=== PATIENT | female | born 1960 | race Caucasian/White ===

== ENCOUNTER 2017-01-23 16:50 | Emergency (ER) | payer OTHER ==
[2017-01-23 17:07] VITALS: BP 128/85; PULSE 95; RESP 18; TEMP 98.1; O2SAT 96
--- NOTE | 2017-01-23 17:52 | EDPHY ---
H & P Time Seen by Provider: 01/23/17 17:16 HPI/ROS: This patient recently moved here from [place] with a history of major depression, anxiety and PTSD. She is currently in the process of intake to [facility], but they require once a week classes for 3 weeks prior to being able see a practitioner and she is only the 1st week of this and she is now out of her clonazepam and nearly out of all of her other psychiatric medications requesting refills. After removing from [place] she had 1 month worst of scripts filled by a physician at the crisis Center where she presented requesting medications. The patient reports no current escalation of her baseline depression simply requests refills to get her through until she is able to secure an appointment to see a practitioner in 2-4 weeks. ROS: No fevers or other somatic symptoms. HEENT: No headaches Psychiatric: No insomnia 5 point ROS is otherwise negative. Past Medical/Surgical History: Major depression, anxiety and PTSD Social History: She admits to smoking marijuana at night to help her sleep. No other drug use. No alcohol use Smoking Status: Heavy smoker Physical Exam: General Appearance: Alert, no distress. Eyes: Pupils equal and round no pallor or injection. Pupils are 4 mm equal and reactive ENT, Mouth: Mucous membranes moist. Respiratory: There are no retractions, lungs are clear to auscultation. Cardiovascular: Regular rate and rhythm. Gastrointestinal: Abdomen is soft and nontender, no masses, bowel sounds normal. Neurological: GCS 15 with no focal deficits Skin: Warm and dry, no rashes. Musculoskeletal: Neck is supple nontender. Extremities are symmetrical, full range of motion. Psychiatric: Mood and affect are currently normal. She has no pressured speech. She maintains logical thought content. She denies any suicidal ideation or homicidal ideation. She is having no hallucinations. No psychotic symptoms. Constitutional: Initial Vital Signs Temperature (C) 36.7 C 01/23/17 17:05 Heart Rate 95 01/23/17 17:05 Respiratory Rate 18 01/23/17 17:05 Blood Pressure 128/85 H 01/23/17 17:05 O2 Sat (%) 96 01/23/17 17:05 O2 Delivery Mode Room Air Allergies/Adverse Reactions: No Known Allergies Allergy (Unverified 01/23/17 17:12) Home Medications: Medication Instructions Recorded Citalopram 40 mg PO DAILY 01/23/17 Citalopram Hydrobromide 40 mg PO DAILY #30 tablet 01/23/17 [Citalopram HBr] Clonazepam 1 mg PO BID 01/23/17 GABAPENTIN 1,200 mg PO HS 01/23/17 Gabapentin 1,200 mg PO HS #60 tablet 01/23/17 Hydroxyzine HCl 100 mg PO HS 01/23/17 Imipramine HCl 150 mg PO HS 01/23/17 clonazePAM [klonoPIN (*)] 1 mg PO BID PRN #60 tab 01/23/17 hydrOXYzine HCL 100 mg PO HS #60 tab 01/23/17 MDM/Departure - [facility] ED Course/Re-evaluation: This patient strikes me as being honest about her medical situation and I explained we would normally do not prescribe more than a very short course of medications but since he is actively seeking psychiatric follow-up with difficult access, I will provide scripts for her with exception of her tricyclic antidepressant that she takes at night for sleep. I Explained that I' m not comfortable filling that script. She does not have evidence of active crisis symptoms or escalation of her baseline psychiatric conditions - Depart Disposition: Home, Routine, Self-Care Clinical Impression: Encounter for medication refill Condition: Good Additional Instructions: Diagnosis: Medication refill Plan: Follow up SARANYA with your psychiatrist Prescriptions: Citalopram Hydrobromide [Citalopram HBr] 40 mg PO DAILY #30 tablet clonazePAM [klonoPIN (*)] 1 mg PO BID PRN #60 tab PRN Reason: Anxiety Gabapentin 1,200 mg PO HS #60 tablet hydrOXYzine HCL 100 mg PO HS #60 tab Referrals: NONE *PRIMARY CARE P,. [Primary Care Provider] - As per Instructions
== END 2017-01-23 18:13 | disposition home or self-care (01) ==
LOC: CED 16:50
DX: Z76.0 Encounter for issue of repeat prescription (principal); F17.200 Nicotine dependence, unspecified, uncomplicated

== ENCOUNTER 2017-02-03 13:45 | Emergency (ER) | payer OTHER ==
[2017-02-03] MEDS ORDERED: LET GEL TOPICAL 1 EA SYR TP ONE (13:53)
[2017-02-03 13:54] VITALS: RESP 18; TEMP 98.1
--- NOTE | 2017-02-03 14:00 | EDPHY ---
H & P Time Seen by Provider: 02/03/17 13:56 HPI/ROS: This patient was cleaning her she had a wearing flip-flops and bumped her foot up against a sharp object that she thinks is broken glass causing a laceration shortly prior to arrival. She does not feel sense of foreign body at the area complains of moderate to severe pain from the laceration to the medial aspect of her right forefoot. She has accompanied by her who brought her here by private vehicle for evaluation. ROS: No numbness tingling or other neuro symptoms. Musculoskeletal: No bony pain No other injuries 5 point ROS is otherwise negative Past Medical/Surgical History: Tetanus immunization up-to-date Smoking Status: Heavy smoker Physical Exam: Physical Exam Vital signs are normal. General: No acute distress Lungs: No respiratory distress. Cardiac: Brisk capillary refill is intact throughout. Pulses are 2+ and symmetric in the affected extremity. Skin: No rash or pallor. Extremities: Atraumatic normal except for right foot Right foot: Patient has a 2 cm full-thickness laceration medial aspect of the right foot with no active bleeding-no foreign bodies and direct examination. Subcutaneous tissues evident but no deeper structures are injured. Neuro: Alert and oriented x3 with no sensorimotor deficits. Constitutional: Initial Vital Signs Temperature (C) 36.7 C 02/03/17 13:47 Heart Rate 99 02/03/17 13:47 Respiratory Rate 18 02/03/17 13:47 Blood Pressure 117/80 02/03/17 13:47 O2 Sat (%) 95 02/03/17 13:47 O2 Delivery Mode Room Air Allergies/Adverse Reactions: No Known Allergies Allergy (Verified 02/03/17 13:54) Home Medications: Medication Instructions Recorded GABAPENTIN 01/23/17 Celexa 02/03/17 Melatonin 02/03/17 clonazePAM [klonoPIN (*)] 02/03/17 hydrOXYzine HCL 02/03/17 traMADol [Ultram 50 mg (*)] 50 - 100 mg PO Q4 PRN #12 tab 02/03/17 MDM/Departure - MDM Procedures: The wound is 2 cm full-thickness, subcutaneous tissue evident, mild bleeding no foreign bodies. The wound was copiously irrigated with saline. The wound was explored for foreign bodies and none were found. The wound was prepped and draped in the normal sterile fashion. The wound was anesthetized using 1% plain lidocaine, 27 gauge needle-3 mL with good effect. The edges were reapproximated using 4 0 Prolene on a PC 3 needle- 6 sutures with good hemostasis and cosmesis. The patient tolerated the procedure well. There were no complications. Medications Given: Discontinued Medications Tetracaine/Epinephrine/Lidocaine (Let Gel Topical) 1 ea TP EDNOW ONE Stop: 02/03/17 13:54 Last Admin: 02/03/17 13:57 Dose: 1 ea - Depart Disposition: Home, Routine, Self-Care Clinical Impression: Foot laceration Qualifiers: Encounter type: initial encounter Laterality: right Qualified Code(s): S91.311A - Laceration without foreign body, right foot, initial encounter Condition: Good Instructions: Care For Your Stitches (ED) Additional Instructions: Diagnosis: Foot laceration Plan: Keep the wound clean and dry for the next 2 days then clean daily with warm soapy water Ibuprofen and Tylenol for pain as needed Return for redness, discharge or other concerns otherwise return in 10-12 days for suture removal Prescriptions: traMADol [Ultram 50 mg (*)] 50 - 100 mg PO Q4 PRN #12 tab PRN Reason: breakthrough pain Referrals: Todd Ramírez MD [Primary Care Provider] - As per Instructions
[2017-02-03 15:08] VITALS: BP 106/72; PULSE 94; O2SAT 96
== END 2017-02-03 15:07 | disposition home or self-care (01) ==
LOC: CED 13:45
PROC: 0HQMXZZ Repair Right Foot Skin, External Approach (ICD-10-PCS; principal; 2017-02-03)
DX: S91.311A Laceration without foreign body, right foot, initial encounter (principal); F17.200 Nicotine dependence, unspecified, uncomplicated; W25.XXXA Contact with sharp glass, initial encounter

== ENCOUNTER 2017-12-05 12:19 | Emergency (ER) | payer OTHER ==
[2017-12-05] MEDS ORDERED: ONDANSETRON 4 MG/2 ML VIAL IVP ONE (12:54)
[2017-12-05] MEDS ORDERED: HYOSCYAMINE SULFATE 0.125 MG TAB PO ONE (12:54)
[2017-12-05] MEDS ORDERED: FAMOTIDINE 20 MG in NS 100 ML IV ONE (12:54)
[2017-12-05] MEDS ORDERED: NS 1,000 ML IV ONE ×2 (12:54)
[2017-12-05] MEDS ORDERED: MAG HYDROX/AL HYDROX/SIMETH 30 ML UDCUP PO ONE (12:54)
[2017-12-05] MEDS ORDERED: LIDOCAINE 2% VISCOUS 15 ML UDCUP PO ONE (12:54)
--- NOTE | 2017-12-05 13:01 | EDPHY ---
H & P Time Seen by Provider: 12/05/17 12:33 HPI/ROS: HPI Vomiting and diarrhea. 57-year-old female by private vehicle. This patient reports that for the last 4 days she has had nausea with nonbilious and nonbloody vomiting, 2-3 episodes a day, watery diarrhea, multiple episodes per day, and now fatigue. She feels like she is getting dehydrated. Today she has not been able to keep oral fluids down. She reports that she vomited once prior to coming to the emergency department. She reports that since that time she has been drinking a small amount of Gatorade. She denies any significant abdominal pain. No foreign travel. No ill contacts. No change in diet. No camping. ROS: Constitutional: No fever, no chills. No weakness. Eyes: No discharge. No changes in vision. ENT: No sore throat. No nasal congestion or rhinorrhea. Respiratory: No cough. No shortness of breath. Cardiac: No chest pain, no palpitations. Gastrointestinal: As above. Genitourinary: No hematuria. No dysuria or increased frequency with urination. Musculoskeletal: No back pain. No neck pain. No myalgias or arthralgias. Skin: No rashes. Neurological: No headache. No focal weakness or altered sensation. Past medical history: Anxiety, depression, PTSD, cholecystectomy. Social history: Smokes cigarettes and marijuana. No IV drugs or street drugs. Currently here by herself. Denies alcohol. Physical Exam: General Appearance: Alert, she appears relaxed. This patient is responding to questions appropriately and in full sentences. This patient appears well- hydrated and well-nourished. Eyes: Pupils equal and round no pallor or injection. No lid edema, erythema or injection. Respiratory: There are no retractions, lungs are clear to auscultation with good air movement bilaterally. Cardiovascular: Regular rate and rhythm. No murmur. Gastrointestinal: Abdomen is soft and nontender, no masses, bowel sounds normal. No focal tenderness at McBurney's point. No Stone sign. Neurological: Motor sensory function is grossly intact. Cranial nerves are normal. Gait is normal. Skin: Warm and dry, no rashes. Musculoskeletal: Neck is supple and nontender. Extremities are symmetrical. All joints range without pain or impingement. Psychiatric: No agitation. No depression. Database: EKG: Imaging: Procedures: Emergency department course: Triage vital signs reviewed. She is mildly tachycardic. Vital signs are otherwise normal. An IV was placed. She was started on IV normal saline with 1 -2 L to be given over the next 1-2 hours. She will initially be given 4 mg of IV Zofran, 20 mg of IV Pepcid and a GI cocktail. Electrolytes will be evaluated. 3:00 p.m., the patient has had 2 L of IV normal saline. I discussed the results of her blood work with her. I explained I am concerned about her kidney function. She is feeling better at this time. She is able to tolerate Gatorade orally. Repeat abdominal exam she is soft, nontender nondistended. She has not vomited in the emergency department. She has not had any diarrhea in the emergency department. She feels comfortable going home and I feel she is safe for discharge. I will prescribe her Zofran for nausea. Follow-up through her primary care physician was discussed with her in detail. Return to emergency department precautions thoroughly reviewed. All of her questions were answered. She was discharged in good condition. Differential Diagnosis: The differential diagnosis on this patient includes but is not limited to viral gastroenteritis, food-borne illness. Appendicitis, cholecystitis, other surgical etiology, entero hemorrhagic E coli infection unlikely. This represents a partial list of diagnoses considered. These considerations are based on history, physical exam, past history, reassessment and diagnostic testing. Smoking Status: Heavy smoker Constitutional: Initial Vital Signs Temperature (C) 36.9 C 12/05/17 12:29 Heart Rate 110 H 12/05/17 12:29 Respiratory Rate 16 12/05/17 12:29 Blood Pressure 146/83 H 12/05/17 12:29 O2 Sat (%) 97 12/05/17 12:29 O2 Delivery Mode Room Air Allergies/Adverse Reactions: No Known Allergies Allergy (Verified 12/05/17 12:37) Home Medications: Medication Instructions Recorded GABAPENTIN 01/23/17 clonazePAM [klonoPIN (*)] 02/03/17 hydrOXYzine HCL 02/03/17 Citalopram 12/05/17 Imipramine HCl 12/05/17 Ondansetron Odt [Zofran Odt 4 mg 4 mg PO Q4PRN PRN #10 tab 12/05/17 (*)] clonazePAM [klonoPIN (*)] 1 mg PO BID #10 tab 12/05/17 Medical Decision Making - Data Points Laboratory Results: 12/05/17 13:16 POC Sodium 142 mEq/L mEq/L (135-145) POC Potassium 4.0 mEq/L mEq/L (3.3-5.0) POC Chloride 101.0 mEq/L mEq/L (97-110) POC Total CO2 25 mEq/L mEq/L (22-31) POC BUN 16 mg/dL mg/dL (7-23) POC Creatinine 1.6 mg/dL H mg/dL (0.6-1.0) POC Glucose 126 mg/dL H mg/dL (70-100) POC Calcium 9.9 mg/dL mg/dL (8.5-10.4) Medications Given: Discontinued Medications Al Hydroxide/Mg Hydroxide (Maalox Susp) 30 ml PO ONCE ONE Stop: 12/05/17 12:55 Last Admin: 12/05/17 13:22 Dose: 30 ml Hyoscyamine Sulfate (Levsin, Hyomax-Sl) 0.25 mg PO ONCE ONE Stop: 12/05/17 12:55 Last Admin: 12/05/17 13:22 Dose: 0.25 mg Sodium Chloride (Ns) 1,000 mls @ 0 mls/hr IV EDNOW ONE; Wide Open PRN Reason: Protocol Stop: 12/05/17 12:55 Last Admin: 12/05/17 13:04 Dose: 1,000 mls Sodium Chloride (Ns) 1,000 mls @ 0 mls/hr IV EDNOW ONE; Wide Open PRN Reason: Protocol Stop: 12/05/17 12:55 Last Admin: 12/05/17 14:10 Dose: 1,000 mls Famotidine 20 mg/ Sodium (Chloride) 102 mls @ 408 mls/hr IV EDNOW ONE Stop: 12/05/17 13:08 Last Admin: 12/05/17 13:30 Dose: 102 mls Lidocaine (Lidocaine 2% Viscous) 15 ml PO ONCE ONE Stop: 12/05/17 12:55 Last Admin: 12/05/17 13:22 Dose: 15 ml Ondansetron HCl (Zofran) 4 mg IVP EDNOW ONE Stop: 12/05/17 12:55 Last Admin: 12/05/17 13:20 Dose: 4 mg Point of Care Test Results: Chemistry 12/05/17 13:16 POC Sodium 142 mEq/L mEq/L (135-145) POC Potassium 4.0 mEq/L mEq/L (3.3-5.0) POC Chloride 101.0 mEq/L mEq/L (97-110) POC Total CO2 25 mEq/L mEq/L (22-31) POC BUN 16 mg/dL mg/dL (7-23) POC Creatinine 1.6 mg/dL H mg/dL (0.6-1.0) POC Glucose 126 mg/dL H mg/dL (70-100) POC Calcium 9.9 mg/dL mg/dL (8.5-10.4) Departure - Departure Disposition: [facility] In[facility] Acute Clinical Impression: Vomiting and diarrhea, Renal insufficiency Condition: Good Instructions: Gastroenteritis (ED) Additional Instructions: Read and follow provided instructions. Follow-up with your primary care physician in 1-2 days for re-evaluation. As discussed, you should have your kidney function rechecked by her primary care physician in the next week. Keep well hydrated. A good fluid to drink is Gatorade mixed with water in a 1- 1 dilution over ice. Take medication as prescribed for nausea. Return to the emergency department for worsening symptoms, vomiting and inability to keep fluids down despite medications, worsening abdominal pain or other serious concerns. Referrals: Kimberly Clakr MD [Medical Doctor] - As per Instructions Aris Conner MD [Medical Doctor] - As per Instructions Prescriptions: clonazePAM [klonoPIN (*)] 1 mg PO BID #10 tab Ondansetron Odt [Zofran Odt 4 mg (*)] 4 mg PO Q4PRN PRN #10 tab PRN Reason: For Nausea & Vomiting
[2017-12-05 15:10] VITALS: BP 117/60
== END 2017-12-05 15:45 | disposition still patient (30) ==
LOC: CED 12:19
DX: R11.10 Vomiting, unspecified (principal); R19.7 Diarrhea, unspecified; N28.9 Disorder of kidney and ureter, unspecified; E86.9 Volume depletion, unspecified; F17.210 Nicotine dependence, cigarettes, uncomplicated
CPT/HCPCS: 96361; 96365; 96375; 99284; J2405; 80048-PO

== ENCOUNTER 2018-01-20 18:32 | Emergency (ER) | payer OTHER ==
[2018-01-20] MEDS ORDERED: METOCLOPRAMIDE 10 MG/2 ML VIAL IVP ONE (19:00)
[2018-01-20] MEDS ORDERED: NS 1,000 ML IV ONE ×2 (19:02→19:25)
[2018-01-20] MEDS ORDERED: LORazepam 2 MG/ML INJ IVP ONE (19:38)
[2018-01-20] MEDS ORDERED: LORazepam 2 MG/ML INJ ONE (19:39)
[2018-01-20] MEDS ORDERED: ONDANSETRON 4 MG/2 ML VIAL IVP ONE (20:13)
--- NOTE | 2018-01-20 20:17 | EDPHY ---
H & P Time Seen by Provider: 01/20/18 18:39 HPI/ROS: CHIEF COMPLAINT: Abdominal pain, nausea, vomiting, diarrhea. HISTORY OF PRESENT ILLNESS: Patient states that"my stomach hurts really bad". Probably started last night, she said she felt okay but had a little bit of abdominal pain. She states that during the night she had to get up at least 5 times with diarrhea. She also states multiple episodes of vomiting and nausea. Pain is described as diffuse, crampy. Patient denies dysuria or fever. No back pain. No rash. She does say she smokes marijuana but denies cyclic vomiting syndrome. Last seen here in October of this year with similar symptoms although today she states the pain is worse. REVIEW OF SYSTEMS: Constitutional: No fever, no chills. Eyes: No discharge. ENT: No sore throat. Cardiovascular: No chest pain, no palpitations. Respiratory: No cough, no shortness of breath. Gastrointestinal: Per HPI Genitourinary: No dysuria. Musculoskeletal: No back pain. Skin: No rashes. Neurological: No headache. General Appearance: Alert, anxious, distressed Eyes: Pupils equal and round no pallor or injection. ENT, Mouth: Mucous membranes moist. Respiratory: There are no retractions, lungs are clear to auscultation. Cardiovascular: Regular rate and rhythm. Gastrointestinal: Abdomen is soft and nontender, no masses, bowel sounds normal. Neurological: Awake and alert, normal gait, no focal deficits. Skin: Warm and dry, no rashes. Musculoskeletal: Neck is supple nontender. Extremities are symmetrical, full range of motion, no edema. Psychiatric: Patient is oriented x3, crying. Medical/surgical history: History of anxiety, depression, PTSD. Surgeries include cholecystectomy. Social history: Patient states she uses marijuana and smokes tobacco. Denies alcohol or drugs. Smoking Status: Heavy smoker Constitutional: Initial Vital Signs Temperature (C) 36.7 C 01/20/18 18:39 Heart Rate 110 H 01/20/18 18:39 Respiratory Rate 24 H 01/20/18 18:39 Blood Pressure 141/91 H 01/20/18 18:39 O2 Sat (%) 99 01/20/18 18:39 O2 Delivery Mode Room Air Allergies/Adverse Reactions: No Known Allergies Allergy (Verified 01/20/18 19:08) Home Medications: Medication Instructions Recorded GABAPENTIN 01/23/17 clonazePAM [klonoPIN (*)] 02/03/17 hydrOXYzine HCL 02/03/17 Citalopram 12/05/17 Imipramine HCl 12/05/17 Ondansetron Odt [Zofran Odt 4 mg 4 mg PO Q4PRN PRN #10 tab 12/05/17 (*)] clonazePAM [klonoPIN (*)] 1 mg PO BID #10 tab 12/05/17 Medical Decision Making ED Course/Re-evaluation: 8:10 p.m. re-evaluation. Patient states she had 1 more episode of vomiting although overall feels better. Abdominal pain is gone. IV fluids complete. Will give odansetron and observe for more time. Pulse improved after fluids, in the 80s. Differential Diagnosis: Differential diagnosis includes but is not limited to gastroenteritis, other food-borne illness, medication withdrawal, anxiety attack. After evaluation patient without evidence of surgical abdomen or other acute intra-abdominal process. Suspect much of her presentation today related to her withdrawal from her multiple medications. She has been out for approximately a week of all medications other than the Celexa. Treatment in the emergency department did improve her symptoms and dehydration. I declined to write prescriptions for her multiple medications and instead strongly recommended she follow up with primary care tomorrow to get started back on her multiple medications. Stable for discharge. - Data Points Laboratory Results: 01/20/18 19:14 POC Hgb 16.0 gm/dL gm/dL (12.6-16.3) POC Hct 47 % % (38-47) POC Sodium 135 mEq/L mEq/L (135-145) POC Potassium 4.0 mEq/L mEq/L (3.3-5.0) POC Chloride 106 mEq/L mEq/L (97-110) POC BUN 20 mg/dL mg/dL (7-23) POC Creatinine 1.4 mg/dL H mg/dL (0.6-1.0) POC Glucose 120 mg/dL H mg/dL (70-100) Medications Given: Discontinued Medications Diphenhydramine HCl (Benadryl Injection) 50 mg IVP EDNOW ONE Stop: 01/20/18 19:02 Last Admin: 01/20/18 19:10 Dose: 50 mg Sodium Chloride (Ns) 1,000 mls @ 0 mls/hr IV ONCE ONE; Wide Open PRN Reason: Protocol Stop: 01/20/18 19:03 Last Admin: 01/20/18 19:10 Dose: 1,000 mls Sodium Chloride (Ns) 1,000 mls @ 0 mls/hr IV EDNOW ONE; Wide Open PRN Reason: Protocol Stop: 01/20/18 19:26 Last Admin: 01/20/18 19:28 Dose: 1,000 mls Lorazepam (Ativan Injection) 1 mg IVP EDNOW ONE Stop: 01/20/18 19:39 Last Admin: 01/20/18 19:41 Dose: 1 mg Metoclopramide HCl (Reglan Injection) 10 mg IVP EDNOW ONE Stop: 01/20/18 19:01 Last Admin: 01/20/18 19:10 Dose: 10 mg Ondansetron HCl (Zofran) 4 mg IVP EDNOW ONE Stop: 01/20/18 20:14 Last Admin: 01/20/18 20:20 Dose: 4 mg Point of Care Test Results: Chemistry 01/20/18 19:14 POC Sodium 135 mEq/L mEq/L (135-145) POC Potassium 4.0 mEq/L mEq/L (3.3-5.0) POC Chloride 106 mEq/L mEq/L (97-110) POC BUN 20 mg/dL mg/dL (7-23) POC Creatinine 1.4 mg/dL H mg/dL (0.6-1.0) POC Glucose 120 mg/dL H mg/dL (70-100) ISTAT H&H 01/20/18 19:14 POC Hgb 16.0 gm/dL gm/dL (12.6-16.3) POC Hct 47 % % (38-47) Departure - Departure Disposition: Home, Routine, Self-Care Clinical Impression: Nausea vomiting and diarrhea Abdominal pain Qualifiers: Abdominal location: generalized Qualified Code(s): R10.84 - Generalized abdominal pain Condition: Fair Instructions: Acute Nausea and Vomiting (ED) Additional Instructions: Stay with clear liquids only for the next 12-24 hours. It is important that you call your primary care doctor tomorrow to get refills of your medications ordered. I suspect that this has a lot to do with her symptoms today. Referrals: Aris Conner MD [Primary Care Provider] - As per Instructions
[2018-01-20 20:55] VITALS: BP 122/80
== END 2018-01-20 20:55 | disposition home or self-care (01) ==
LOC: CED 18:32
DX: R11.2 Nausea with vomiting, unspecified (principal); R19.7 Diarrhea, unspecified; R10.84 Generalized abdominal pain; F17.200 Nicotine dependence, unspecified, uncomplicated; E86.9 Volume depletion, unspecified
CPT/HCPCS: 96361; 96374; 96375; 99284; J1200; J2060; J2405; J2765; 82435-PO; 82565-PO; 82947-PO; 84132-PO; 84295-PO; 84520-PO; 85014-PO